=== PATIENT | female | born 1990 | race Two or more races ===

== ENCOUNTER 2025-03-28 09:35 | Emergency (ER) | payer BC ==
[~2025-03-28] VITALS: Ht 154.9 cm; Wt 52.2 kg
[2025-03-28 09:43] VITALS: TEMP 98.1
[2025-03-28] MEDS ORDERED: MAG HYDROX/AL HYDROX/SIMETH 30 ML UDC ONE (10:09)
[2025-03-28] MEDS ORDERED: LIDOCAINE VISCOUS 2% UD 15 ML UDC ONE (10:09)
[2025-03-28] MEDS: LIDOCAINE VISCOUS 2% UD 15 ML UDC MM ONE (10:13)
[2025-03-28] MEDS: MAG HYDROX/AL HYDROX/SIMETH 30 ML UDC PO ONE (10:13)
[2025-03-28 10:23] LABS: PLATELET COUNT (AUTO) 185 K/uL (150-450); RED BLOOD CELL COUNT(AUTO) 4.41 MIL/uL (4.0-5.2); RED CELL DISTRIBUTION WIDTH 12.9 % (11.5-15.0); WHITE BLOOD COUNT (AUTO) 8.6 K/uL (4.3-11.0)
[2025-03-28 10:30] LABS: CALCIUM, SERUM 8.7 mg/dL (8.5-10.1); CREATININE 0.7 mg/dL (0.6-1.3); SODIUM SERUM 138.0 mmol/L (136-145); UREA NITROGEN, BLOOD 7.0 mg/dL (7-18)
[2025-03-28 11:04] LABS: PREGNANCY TEST URINE QUAL NEGATIVE (NEGATIVE)
[2025-03-28 12:14] VITALS: BP 108/70; O2SAT 99
[2025-03-28] MEDS ORDERED: PANT20TA2 PO (12:19)
== END 2025-03-28 12:28 | disposition home or self-care (01) ==
LOC: ER 09:47
DX: K21.9 Gastro-esophageal reflux disease without esophagitis (principal); R07.9 Chest pain, unspecified
CPT/HCPCS: 36415; 71045-TC; 80048-TC; 84484-TC; 84703-TC; 85025-TC